=== PATIENT | female | born 1980 | race Caucasian/White ===

== ENCOUNTER 2016-09-15 12:22 | Emergency (ER) | payer SELFPAY ==
[2016-09-15 12:31] VITALS: BP 151/72
[2016-09-15] MEDS ORDERED: IBUPROFEN 800 MG TABLET PO ONE (12:35)
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
[2016-09-15] MEDS ORDERED: OXYCODONE-ACETAMINOPHEN 5-325 MG TABLET PO ONE (13:25)
[2016-09-15] MEDS ORDERED: AMOXICILLIN TRIHYD 250 MG CAPSULE PO ONE (13:26)
[2016-09-15] MEDS ORDERED: AMOXICILLIN TR/POT CLAVULANATE 500-125 MG TAB PO ONE (13:26)
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
== END 2016-09-15 14:06 | disposition home or self-care (01) ==
LOC: ER 12:22
DX: S61.542A Puncture wound with foreign body of left wrist, initial encounter (principal); R03.0 Elevated blood-pressure reading, without diagnosis of hypertension; W54.0XXA Bitten by dog, initial encounter; F17.200 Nicotine dependence, unspecified, uncomplicated
CPT/HCPCS: 99283; 73090; J3490

== ENCOUNTER 2016-11-21 15:41 | Emergency (ER) | payer BC ==
[2016-11-21] MEDS ORDERED: DIPHENHYDRAMINE HCL 50 MG/ML VIAL IV ONE (15:58)
--- NOTE | 2016-11-21 16:00 | ER Document Report ---
ED Medical Screen (RME) - General Chief Complaint: Allergic Reaction Stated Complaint: POSSIBLE ALLERGIC REACTION Time Seen by Provider: 11/21/16 15:54 Notes: Patient is a 36 year old female presenting to the ED for a possible allergic reaction. Patient was given Phenergan and Nubain at Dr. Ghosh's office. Patient is having a jerky, twitch-like reaction. Patient is a smoker. I have greeted and performed a rapid initial assessment of this patient. A comprehensive ED assessment and evaluation of the patient, analysis of test results and completion of the medical decision making process will be conducted by additional ED providers. TRAVEL OUTSIDE OF THE [place] IN LAST 30 DAYS: No - Related Data Allergies/Adverse Reactions: codeine [Codeine] Adverse Reaction (Mild, Verified 09/15/16 12:31) Urticaria Past Medical History Renal/ Medical History: Denies: Hx Peritoneal Dialysis Psychiatric Medical History: Reports: Hx Depression Past Surgical History: Reports: Hx Tonsillectomy - Immunizations Hx Diphtheria, Pertussis, Tetanus Vaccination: Yes Physical Exam - Vital signs Vitals: Temp Pulse Resp BP Pulse Ox 98.1 F 90 16 147/91 H 98 11/21/16 15:46 11/21/16 15:46 11/21/16 15:46 11/21/16 15:46 11/21/16 15:46 - Notes Notes: GENERAL: Alert, interacts well. No acute distress. LUNGS: Clear to auscultation bilaterally, no wheezes, rales, or rhonchi. No respiratory distress. HEART: Regular rate and rhythm. No murmurs, gallops, or rubs. NEUROLOGICAL: Alert and oriented x3. Normal speech. SKIN: Warm, dry, normal turgor. Course - Vital Signs Vital signs: Temp Pulse Resp BP Pulse Ox 98.1 F 90 16 147/91 H 98 11/21/16 15:46 11/21/16 15:46 11/21/16 15:46 11/21/16 15:46 11/21/16 15:46 Scribe Documentation - Scribe Written by Scribe:: Ankit Samayoa, 11/21/2016 1600 acting as scribe for :: Marisa
[2016-11-21] MEDS ORDERED: NORMAL SALINE 1000 ML 1,000 ML IV ONE (16:39)
[2016-11-21] MEDS ORDERED: HALOPERIDOL LACTATE INJ 5 MG/1 ML VIAL IV ONE (17:14)
[2016-11-21 17:32] LABS: APPEARANCE,URINE CLEAR; BILIRUBIN,URINE NEGATIVE (NEGATIVE); GLUCOSE, URINE NEGATIVE (NEGATIVE); KETONES,URINE NEGATIVE (NEGATIVE); LEUKOCYTE ESTERASE,URINE NEGATIVE (NEGATIVE); NITRITE,URINE NEGATIVE (NEGATIVE); PROTEIN,URINE NEGATIVE (NEGATIVE); URINE SPECIFIC GRAVITY 1.004; UROBILINOGEN,URINE NEGATIVE mg/dL (<2.0)
[2016-11-21 17:36] LABS: URINE BARBITURATES SCREEN NEGATIVE; URINE OPIATES LOW UNCONFIRMED POSITIVE; URINE PHENCYCLIDINE SCREEN NEGATIVE
[2016-11-21 17:43] LABS: URINE METHADONE SCREEN NEGATIVE
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
[2016-11-21 19:17] VITALS: BP 168/81
== END 2016-11-21 19:16 | disposition home or self-care (01) ==
LOC: ER 15:41
DX: R52 Pain, unspecified (principal); F11.90 Opioid use, unspecified, uncomplicated; F14.10 Cocaine abuse, uncomplicated; T78.40XA Allergy, unspecified, initial encounter; Z79.899 Other long term (current) drug therapy; F17.200 Nicotine dependence, unspecified, uncomplicated
CPT/HCPCS: 99283; 96374; 96375; 81001; 80307; J1200; J1630

== ENCOUNTER 2016-12-08 11:24 | Emergency (ER) | payer BC ==
[2016-12-08 11:29] VITALS: BP 146/72
--- NOTE | 2016-12-08 12:32 | ER Document Report ---
ED General - General Mode of Arrival: Ambulatory Information source: Patient TRAVEL OUTSIDE OF THE [place] IN LAST 30 DAYS: No - General Chief Complaint: Nausea/Vomiting Stated Complaint: WITHDRAWAL Notes: Patient is a 36-year-old female presenting to the emergency department for opiate withdrawal. Patient has been methamphetamine, heroin, cocaine, and marijuana. Patient states that she is trying to get her insurance to come to her that she can get Suboxone. Patient states that she has been vomiting and sweating. Patient states that she was sent to the emergency department by Dr. Boyd. Patient states she is allergic to codeine. Patient given multiple outpatient resources by the mental health team for which she refused. Patient is requesting Suboxone in the emergency department. Patient states that she can detox at home and then she can an inpatient facility. (LIZETT CROWELL) - Related Data Allergies/Adverse Reactions: codeine [Codeine] Adverse Reaction (Mild, Verified 12/08/16 11:43) Urticaria Past Medical History - General Information source: Patient - Social History Smoking Status: Current Every Day Smoker Chew tobacco use (# tins/day): No Frequency of alcohol use: Occasional Drug Abuse: Cocaine, Heroin, Methamphetamine, Prescription drugs - opiates Family History: None Psychiatric Medical History: Reports: Hx Depression Past Surgical History: Reports: Hx Tonsillectomy - Immunizations Hx Diphtheria, Pertussis, Tetanus Vaccination: Yes Review of Systems - Review of Systems Constitutional: No symptoms reported EENT: No symptoms reported Cardiovascular: No symptoms reported Respiratory: No symptoms reported Gastrointestinal: See HPI Genitourinary: No symptoms reported Female Genitourinary: No symptoms reported Musculoskeletal: No symptoms reported Skin: See HPI Hematologic/Lymphatic: No symptoms reported Neurological/Psychological: See HPI -: Yes All other systems reviewed and negative Physical Exam - Vital signs Interpretation: Normal - General General appearance: Appears well, Alert - HEENT Head: Normocephalic, Atraumatic Eyes: Normal Pupils: PERRL - Respiratory Respiratory status: No respiratory distress Chest status: Nontender Breath sounds: Normal Chest palpation: Normal - Cardiovascular Rhythm: Regular Heart sounds: Normal auscultation Murmur: No - Abdominal Inspection: Normal Distension: No distension Bowel sounds: Normal Tenderness: Nontender Organomegaly: No organomegaly - Back Back: Normal, Nontender - Extremities General upper extremity: Normal inspection, Normal ROM, Normal strength General lower extremity: Normal inspection, Normal ROM, Normal strength - Neurological Neuro grossly intact: Yes Cognition: Normal Orientation: AAOx4 [place] Coma Scale Eye Opening: Spontaneous [place] Coma Scale Verbal: Oriented [place] Coma Scale Motor: Obeys Commands [place] Coma Scale Total: 15 Speech: Normal Sensory: Normal - Psychological Associated symptoms: Normal affect, Normal mood - Skin Skin Temperature: Warm Skin Moisture: Dry Course - Re-evaluation Re-evalutation: 12/08/16 12:38 Presents the emergency department chief complaint of opioid withdrawal requesting Suboxone and stating that Dr. Roper told her to come directly here. I actually called Dr. Ugalde and he said he did not tell her to come to the emergency department. She has already seen an outpatient facility and they are awaiting her insurance there to try to find an outpatient facility. She is not hypotensive tachycardic receiving her injecting sites are not infected there is no abscess. And she is alert and oriented 3. At this point he had mental health come up and provide her with resources including [facility] which is right across the street and open right now for walk-in clinic. And she is to return for increasing worsening (NICHOLAS HER) - Vital Signs Vital signs: Temp Pulse Resp BP Pulse Ox 98.0 F 91 18 146/72 H 99 12/08/16 11:28 12/08/16 11:28 12/08/16 11:28 12/08/16 11:28 12/08/16 11:28 Discharge - Discharge Clinical Impression: opiate addiction Condition: Stable Disposition: HOME, SELF-CARE Additional Instructions: Narcotic Abuse You have been given a prescription for pain control. This medication is a narcotic. It's best taken with food, as nausea can result if taken on an empty stomach. Don't operate machinery or drive within six hours of taking this medication. Do not combine this medicine with alcohol, or with any medication which can cause sedation (such as cold tablets or sleeping pills) unless you get permission from the physician. Narcotics tend to cause constipation. If possible, drink plenty of fluids and eat a diet high in fiber and fruits. Please be aware that prescription narcotics also have the potential for abuse. People become addicted to these medications because of the general sense of wellbeing that they induce. This feeling along with a significant reduction in tension, anxiety, and aggression provides a stimulating seductive quality to these drugs. Once your pain is under control, we encourage you to discard your unused narcotics. You have been given instructions right now to go to [facility] which has a walk-in clinic to assist in getting you help with outpatient substance abuse treatment return to emergency department sooner for increasing worsening or new symptoms Referrals: TEREZA BOYD MD [Primary Care Provider] - Follow up as needed Scribe Attestation: 12/08/16 12:37 I personally performed the services described in the documentation reviewed the documentation recorded by my scribe in my presence and it accurately and completely records my words and actions (NICHOLAS HER) Scribe Documentation - Scribe Written by Tripe:: Ankit Samayoa, 12/08/2016 9106 acting as scribe for :: TAINA
== END 2016-12-08 12:44 | disposition home or self-care (01) ==
LOC: ER 11:24
DX: F11.20 Opioid dependence, uncomplicated (principal); R11.2 Nausea with vomiting, unspecified; F17.200 Nicotine dependence, unspecified, uncomplicated; Z88.6 Allergy status to analgesic agent
CPT/HCPCS: 99283

== ENCOUNTER 2017-06-05 20:48 | Emergency (ER) | payer SELFPAY ==
[2017-06-05] MEDS ORDERED: DEXAMETHASONE SOD PHOS INJ 10 MG/1 ML VIAL IM ONE (22:33)
--- NOTE | 2017-06-05 22:35 | ER Document Report ---
ED General - General Chief Complaint: Sore Throat Stated Complaint: THROAT AND EAR PAIN Time Seen by Provider: 06/05/17 22:08 Notes: Patient is a pleasant 37-year-old female presents with complaint of nasal congestion sore throat cough and some left-sided ear pain. Should symptoms have been intermittent for 3 weeks. She denies any recent fevers. No vomiting. No diarrhea. She is a smoker. No other complaints at this time. TRAVEL OUTSIDE OF THE [place] IN LAST 30 DAYS: No - Related Data Allergies/Adverse Reactions: codeine [Codeine] Adverse Reaction (Mild, Verified 12/08/16 11:43) Urticaria Past Medical History - Social History Smoking Status: Current Every Day Smoker Frequency of alcohol use: None Drug Abuse: None Family History: None Patient has suicidal ideation: No Patient has homicidal ideation: No Renal/ Medical History: Denies: Hx Peritoneal Dialysis Psychiatric Medical History: Reports: Hx Depression Past Surgical History: Reports: Hx Tonsillectomy - Immunizations Hx Diphtheria, Pertussis, Tetanus Vaccination: Yes Review of Systems - Review of Systems Notes: My Normal Review Basic REVIEW OF SYSTEMS: CONSTITUTIONAL : Denies fever, chills, or sweats. . EENT: Nasal congestion. CARDIOVASCULAR: Denies chest pain. RESPIRATORY: Cough. GASTROINTESTINAL: Denies abdominal pain. Denies nausea, vomiting, or diarrhea. NEUROLOGICAL: Denies altered mental status or loss of consciousness. mild sinus headache. Denies weakness or paralysis or loss of use of either side. Denies problems with gait or speech. Denies sensory or motor loss. ALL OTHER SYSTEMS REVIEWED AND NEGATIVE. Physical Exam - Vital signs Vitals: Temp Pulse Resp BP Pulse Ox 98.6 F 83 16 131/68 H 100 06/05/17 20:59 06/05/17 20:59 06/05/17 20:59 06/05/17 20:59 06/05/17 20:59 - Notes Notes: General Appearance: Well nourished, alert, cooperative, no acute distress, no obvious discomfort. Well Appearing. Vitals: reviewed, See vital signs table. Head: no swelling or tenderness to the head Eyes: PERRL, EOMI, Conjuctiva clear Mouth: No decreasd moisture Throat: No tonsillar inflammation, No airway obstruction, No lymphadenopathy Normal-appearing tympanic membranes bilaterally. Neck: Supple, no neck tenderness Lungs: No wheezing, No rales, No rhonci, No accessory muscle use, good air exchange bilaterally. Heart: Normal rate, Regular rythm, No murmur, no rub Abdomen: Normal BS, soft, No rigidity, No abdominal tenderness, No guarding, no rebound, no abdominal masses, no organomegaly Extremities: strength 5/5 in all extremities, good pulses in all extremities, no swelling or tenderness in the extremities, no edema. Skin: warm, dry, appropriate color, no rash Neuro: speech clear, oriented x 3, normal affect, responds appropriately to questions. Course - Re-evaluation Re-evalutation: 06/06/17 05:21 Patient's nose congestion. I do not see evidence of bacterial infection. I will give her a shot of Decadron to see if this helps with relieving some the pressure in her sinuses and from behind her ear. I encouraged her to quit smoking. I informed her that she continues to smoke more likely will take much longer for her to get rid of her sinus congestion. Informed to return to ER if she has fevers, vomiting, or she feels unwell. Patient agrees with plan and will be discharged home. Dictation of this chart was performed using voice recognition software; therefore, there may be some unintended grammatical errors. - Vital Signs Vital signs: Temp Pulse Resp BP Pulse Ox 98.5 F 88 18 128/75 H 98 06/05/17 22:48 06/05/17 22:48 06/05/17 22:48 06/05/17 22:48 06/05/17 22:48 Discharge - Discharge Clinical Impression: URI (upper respiratory infection) Qualifiers: URI type: unspecified URI Qualified Code(s): J06.9 - Acute upper respiratory infection, unspecified Disposition: HOME, SELF-CARE Additional Instructions: Please stop smoking. Smoking will make your symptoms linger on much longer and make it hard for you to get over these upper respiratory infections. We have given you a shot of steroids. This should help with your symptoms. Please return to the ER immediately if you have wheezing, difficulty breathing, fevers , or if you feel that you are worsening in any way. Forms: Return to Work
[2017-06-05 22:49] VITALS: BP 128/75
== END 2017-06-05 22:43 | disposition home or self-care (01) ==
LOC: ER 20:48
DX: J06.9 Acute upper respiratory infection, unspecified (principal); H92.02 Otalgia, left ear; R09.81 Nasal congestion; R05 Cough; F17.200 Nicotine dependence, unspecified, uncomplicated
CPT/HCPCS: 99283; 96372; 87070; 87880; J1100

== ENCOUNTER 2017-09-18 19:11 | Emergency (ER) | payer OTHER ==
[2017-09-18] MEDS ORDERED: DEXAMETHASONE SOD PHOS INJ 10 MG/1 ML VIAL IM ONE (21:56)
[2017-09-18] MEDS ORDERED: TRAMADOL HCL 50 MG TABLET PO ONE (21:56)
[2017-09-18] MEDS ORDERED: CYCLOBENZAPRINE HCL 10 MG TABLET PO ONE (21:56)
--- NOTE | 2017-09-18 21:59 | ER Document Report ---
ED General - General Chief Complaint: Back Pain Stated Complaint: BACK INJURY Time Seen by Provider: 09/18/17 21:47 TRAVEL OUTSIDE OF THE [place] IN LAST 30 DAYS: No - HPI Notes: 37-year-old female presents with back pain. 37-year-old female without a history of previous chronic back pain, states that she was lifting a container of potatoes and water this morning when she felt something "bad" in her back. Since then she has had sudden onset severe right lower back pain that at times radiates into her right leg. Achy, sharp and severe. There is no history of malignancy, no history of bowel or bladder dysfunction. No fever or constitutional symptoms. No history of IV drug abuse. No other modifying factors, no other associated symptoms, no other provocative or palliative factors. - Related Data Allergies/Adverse Reactions: No Known Allergies Allergy (Verified 09/18/17 19:12) Past Medical History - Social History Smoking Status: Unknown if Ever Smoked Family History: None - Medical History Medical History: Negative Renal/ Medical History: Denies: Hx Peritoneal Dialysis Psychiatric Medical History: Reports: Hx Depression Past Surgical History: Reports: Hx Tonsillectomy - Immunizations Hx Diphtheria, Pertussis, Tetanus Vaccination: Yes Review of Systems - Review of Systems Notes: Review of systems as in the history of present illness, otherwise negative. Physical Exam - Vital signs Vitals: Temp Pulse Resp BP Pulse Ox 99.6 F 82 16 129/66 H 99 09/18/17 19:25 09/18/17 19:25 09/18/17 19:25 09/18/17 19:25 09/18/17 19:25 - Notes Notes: General: Well devloped, no acute distress. HEENT: Normocephalic, atraumatic. Pupils equal round reactive to light. Mucosa moist. No JVD. Chest: No trauma, normal excursion. Respiratory: Good air exchange, normal excursion. Cardiac: Regular rhythm Abdomen: Soft, benign. Nondistended. Back: No asymmetry or gross abnormality. Moderate right paralumbar tenderness. Motor: Grossly normal power and tone. Neurologic: Alert, nonfocal. DTRs 2+ symmetric at the ankles and knees. Sensation. Vascular: Well perfused Skin: No petechiae or purpura Course - Re-evaluation Re-evalutation: Well-appearing 37-year-old female presents with likely lumbar strain versus mild lumbar radiculopathy. At this point will treat with a single dose of tramadol, outpatient NSAIDs and Flexeril, given the potential for early radiculopathy she given a single dose of IM Decadron in the ED, follow-up as discussed. - Vital Signs Vital signs: Temp Pulse Resp BP Pulse Ox 99.6 F 82 16 129/66 H 99 09/18/17 19:25 09/18/17 19:25 09/18/17 19:25 09/18/17 19:25 09/18/17 19:25 Discharge - Discharge Clinical Impression: Lumbar strain Qualifiers: Encounter type: initial encounter Qualified Code(s): S39.012A - Strain of muscle, fascia and tendon of lower back, initial encounter Disposition: HOME, SELF-CARE Instructions: Low Back Pain ([facility]) Prescriptions: Cyclobenzaprine HCl [Flexeril 10 mg Tablet] 10 mg PO TIDP PRN #15 tab NS PRN Reason: Ibuprofen [Motrin 600 Mg Tablet] 600 mg PO TID #15 tablet Referrals: TEREZA BOYD MD [Primary Care Provider] - Follow up as needed
[2017-09-18 22:31] VITALS: BP 126/72
== END 2017-09-18 22:30 | disposition home or self-care (01) ==
LOC: ER 19:11
DX: S39.012A Strain of muscle, fascia and tendon of lower back, initial encounter (principal); M79.604 Pain in right leg; X50.0XXA Overexertion from strenuous movement or load, initial encounter
CPT/HCPCS: 99283; 96372; J1100

== ENCOUNTER 2017-09-23 13:41 | Emergency (ER) | payer OTHER ==
[2017-09-23 13:51] VITALS: BP 126/69
[2017-09-23] MEDS ORDERED: LIDOCAINE 5% (700 MG) TRANSDERMAL ADH..PATCH TP ONE (14:36)
[2017-09-23] MEDS ORDERED: KETOROLAC TROMETHAMINE 60 MG/2 ML SDV IM ONE (14:36)
[2017-09-23] MEDS ORDERED: DEXAMETHASONE SOD PHOS INJ 10 MG/1 ML VIAL IM ONE (14:36)
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
== END 2017-09-23 16:22 | disposition home or self-care (01) ==
LOC: ER 13:41
DX: M54.42 Lumbago with sciatica, left side (principal); V49.9XXA Car occupant (driver) (passenger) injured in unspecified traffic accident, initial encounter; Y99.0 Civilian activity done for income or pay
CPT/HCPCS: 99283; 96372; 72131; J1885; J1100